=== PATIENT | male | born 1970 | race Two or more races ===

== ENCOUNTER 2021-09-13 18:27 | Emergency (ER) | payer SELFPAY ==
[~2021-09-13] VITALS: Ht 167.6 cm; Wt 65.8 kg
[2021-09-13] MEDS ORDERED: DEXAMETHASONE SOD PHOSPHATE 4 MG INJ IM ONE (22:45)
[2021-09-13] MEDS ORDERED: DEXAMETHASONE SOD PHOSPHATE 10 MG INJ ONE (22:54)
[2021-09-13] MEDS ORDERED: EPIN0.3P3 IJ (23:11)
[2021-09-13] MEDS ORDERED: PRED50TA PO (23:11)
--- NOTE | 2021-09-13 23:40 | NUR ---
Patient discharged to home in stable condition. Written and verbal after care instructions given. Patient verbalizes understanding of instructions. Stressed follow up or return to ER for worsening s/s.
[2021-09-13 23:41] VITALS: BP 133/80
== END 2021-09-13 23:35 | disposition home or self-care (01) ==
LOC: ER 18:29
DX: T78.40XA Allergy, unspecified, initial encounter (principal); X58.XXXA Exposure to other specified factors, initial encounter; Z20.822 Contact with and (suspected) exposure to COVID-19
CPT/HCPCS: 86403; 87070; 87400; 87426; 96372; 99283; J1100; A4663